=== PATIENT | male | born 1965 | race Caucasian/White ===

== ENCOUNTER 2017-10-07 18:03 | Emergency (ER) ==
[2017-10-07 18:14] VITALS: TEMP 99.1; BMI 35.7
[2017-10-07] MEDS ORDERED: ZESTRIL PO STA (18:19)
--- NOTE | 2017-10-07 18:23 | ED.PDOC ---
General ED Provider: Dr. LAMONT CARBONE Chief Complaint: Hypertension Stated Complaint: hypertension Time Seen by Physician: 18:00 Mode of Arrival: Walk-In Information Source: Patient Exam Limitations: No limitations Primary Care Provider: CHARLES VENTURA Nursing and Triage Documentation Reviewed and Agree: Yes (has been off his bp meds ) Cardiovascular Complaint Exam - Hypertension Complaint/Exam Onset/Duration: today Symptoms Are: Still present Timing: Constant Reported B/P Prior to Arrival: 200 systolic Aggravating: Reports: None Alleviating: Reports: None Associated Signs and Symptoms: Denies: Chest pain, Vision changes, Anxiety, Recent stress, Headache, Numbness, Tingling, Weakness, Dizziness, Short of air, Swelling Related History: Reports: Similar episode Related Surgical History: Reports: None Cardiac Risk Factors: Reports: Hypertension Recent Change in Medications: No A/V Nicking: No Papilledema Present: No JVD Present: No Carotid Bruit Present: No Femoral Pulses Bounding: No Differential Diagnoses: Hypertension Quality Indicator For Non-Traumatic Chest Pain/Syncope: EKG Performed Review of Systems - Review Of Systems Constitutional: Reports: No symptoms Eyes: Reports: No symptoms Ears, Nose, Mouth, Throat: Reports: No symptoms Respiratory: Reports: No symptoms Cardiac: Reports: No symptoms GI: Reports: No symptoms : Reports: No symptoms Musculoskeletal: Reports: No symptoms Skin: Reports: No symptoms Neurological: Reports: No symptoms Endocrine: Reports: No symptoms Hematologic/Lymphatic: Reports: No symptoms All Other Systems: Reviewed and Negative Past Medical History - Past Medical History Previously Healthy: Yes Endocrine: Reports: None Cardiovascular: Reports: Hypertension Respiratory: Reports: None Hematological: Reports: None Gastrointestinal: Reports: GERD Genitourinary: Reports: None Neuro/Psych: Reports: None Musculoskeletal: Reports: None Cancer: Reports: None - Surgical History General Surgical History: Reports: Appendectomy, Orthopedic (PLATE IN RIGHT ANKLE), Back Surgery, Other ( HERNIA SURGERY APPENDECTOMY, PLATE IN RIGHT ) - Family History Family History: Reports: Unknown - Social History Smoking Status: Former smoker Hx Substance Use: No Alcohol Screening: None Physical Exam - Physical Exam Appearance: Well-appearing, No pain distress, Well-nourished Eyes: LA, EOMI, Conjunctiva clear ENT: Ears normal, Nose normal, Oropharynx normal Respiratory: Airway patent, Breath sounds clear, Breath sounds equal, Respirations nonlabored Cardiovascular: RRR, Pulses normal, No rub, No murmur GI/: Soft, Nontender, No masses, Bowel sounds normal, No Organomegaly Musculoskeletal: Normal strength, ROM intact, No edema, No calf tenderness Skin: Warm, Dry, Normal color Neurological: Sensation intact, Motor intact, Reflexes intact, Cranial nerves intact, Alert, Oriented Psychiatric: Affect appropriate, Mood appropriate Re-Evaluation - Re-Evaluation Time of Re-Evaluation: 18:38 Status: Improved (B/P 164/103 ) Pain Level: 0 Appearance: NAD Lungs: Clear Skin: Warm and Dry Neuro: Alert and Oriented X3 CV: RRR Critical Care Note - Critical Care Note Total Time (mins): 0 Course - Course Orders, Labs, Meds: Orders Category Date Time Status EKG-(ED ONLY) Stat CARDIO 10/07/17 18:19 Ordered CBC W/ AUTO DIFF Stat LAB 10/07/17 18:18 Ordered COMPREHENSIVE METABOLIC PANEL Stat LAB 10/07/17 18:18 Ordered Amlodipine Besylate [Norvasc] MEDS 10/07/17 18:24 Stop Req 10 mg PO ONCE STA Lisinopril [Zestril] MEDS 10/07/17 18:19 Discontinued 40 mg PO ONCE STA Medications Discontinued Medications Generic Name Dose Route Start Last Admin Trade Name Freq PRN Reason Stop Dose Admin Amlodipine Besylate 10 mg 10/07/17 18:24 Norvasc PO 10/07/17 18:25 ONCE STA Lisinopril 40 mg 10/07/17 18:19 Zestril PO 10/07/17 18:20 ONCE STA Vital Signs: Temp Pulse Resp BP Pulse Ox 10/07/17 18:03 99.1 F 95 H 20 201/119 H 96 VIRY Risk Score VIRY Risk Score: Risk Score Odds of by 30D 0 0.1 (0.1-0.2) 1 0.3 (0.2-0.3) 2 0.4 (0.3-0.5) 3 0.7 (0.6-0.9) 4 1.2 (1.0-1.5) 5 2.2 (1.9-2.6) 6 3.0 (2.5-3.6) 7 4.8 (3.8-6.1) Departure - Departure Time of Disposition: 19:00 (PT WAS TOLD TO BE COMPLAINT WITH HIS JAGJIT AND FFOLLOW UP WITH PMD ) Disposition: HOME SELF-CARE Discharge Problem: Hypertension Qualifiers: Hypertension type: unspecified Qualified Code(s): I10 - Essential (primary) hypertension Instructions: Hypertension (ED) Condition: Good Pt referred to PMD for follow-up: Yes Additional Instructions: Please call your Family Physician as soon as possible to schedule a follow-up appointment. Allergies/Adverse Reactions: Allergies No Known Allergies Allergy (Verified 10/07/17 18:12) Home Medications: Ambulatory Orders Esomeprazole Magnesium [Nexium] 40 mg PO DAILY 08/14/14 Gabapentin 400 mg PO DAILY 08/14/14 Lisinopril/Hydrochlorothiazide [Zestoretic 20-12.5 mg Tablet] 2 each PO DAILY Disposition Discussed With: Patient
[2017-10-07] MEDS ORDERED: NORVASC PO STA (18:24)
[2017-10-07] MEDS ORDERED: ZESTRIL ONE (18:30)
[2017-10-07 18:32] LABS: BASOPHILS # (AUTO) 0.1 K/uL (0-0.2); BASOPHILS % (AUTO) 0.6 % (0.0-3.0); EOSINOPHILS # (AUTO) 0.2 K/ul (0.0-0.7); EOSINOPHILS % (AUTO) 2.6 % (0.0-7.0); HEMATOCRIT 39.8 % (42.0-52.0); HEMOGLOBIN 14.1 g/dl (14.0-18.0); IMMATURE GRANULOCYTE % (AUTO) 0.2 % (0.0-5.0); LYMPHOCYTES # (AUTO) 2.4 K/uL (0.60-3.4); LYMPHOCYTES % (AUTO) 29.7 (10.0-50.0); MEAN CORPUSCULAR HEMOGLOBIN 29.7 pg (27.0-31.0); MEAN CORPUSCULAR HGB CONC 35.4 (31.8-35.4); MONOCYTES # (AUTO) 0.5 K/uL (0.4-2.0); MONOCYTES % (AUTO) 6.1 (0-10); NEUTROPHILS % (AUTO) 60.8; PLATELET COUNT 196 10^3/uL (140-440); RED BLOOD COUNT 4.74 10^6/ul (4.70-6.10); WHITE BLOOD COUNT 8.15 K/ul (4.2-10.2)
[2017-10-07 18:53] LABS: ALBUMIN 3.5 g/dL (3.4-5.0); ALBUMIN/GLOBULIN RATIO 0.88; ANION GAP 13.7; BILIRUBIN,TOTAL 0.47 mg/dL (0.00-1.20); BUN/CREATININE RATIO 10.1; CALCIUM 9.5 mg/dL (8.2-10.2); CREATININE 0.99 mg/dL (0.60-1.10); POTASSIUM 3.7 mmol/L (3.5-5.1); TOTAL PROTEIN 7.5 g/dL (6.4-8.2)
[2017-10-07 19:08] VITALS: BP 146/88
== END 2017-10-07 19:32 | disposition home or self-care (01) ==
LOC: ED 18:03
DX: I10 Essential (primary) hypertension (principal); Z91.14 Patient's other noncompliance with medication regimen
CPT/HCPCS: 36415; 80053; 85025; 93005; 93010; 99283

== ENCOUNTER 2019-05-02 11:46 | Emergency (ER) ==
[2019-05-02 11:58] VITALS: BP 171/102; TEMP 97.1; BMI 36.3
--- NOTE | 2019-05-02 12:08 | ED.PDOC ---
General ED Provider: Dr. JAILYN CUEVA MD Chief Complaint: Abdominal Pain Stated Complaint: LLQ abdominal pain radiating in to scrotum Time Seen by Physician: 12:07 Mode of Arrival: Walk-In Information Source: Patient Exam Limitations: No limitations Primary Care Provider: CHARLES VENTURA Nursing and Triage Documentation Reviewed and Agree: Yes Does patient meet sepsis criteria?: No If yes, has appropriate treatment been initiated?: Yes System Inflammatory Response Syndrome: Not Applicable Sepsis Protocol: For patient's 13 years and over: Temp is 96.8 and below OR 101 and greater Pulse >90 BPM Resp >20/minute Acutely Altered Mental Status Are patient's symptoms suggestive of a new infection, such as: -Pneumonia -Skin, Soft Tissue -Endocarditis -UTI -Bone, Joint Infection -Implantable Device -Acute Abdominal Infection -Wound Infection -Meningitis -Blood Stream Catheter Infection -Unknown Review of Systems - Review Of Systems Constitutional: Reports: No symptoms Eyes: Reports: No symptoms Ears, Nose, Mouth, Throat: Reports: No symptoms Respiratory: Reports: No symptoms Cardiac: Reports: No symptoms GI: Reports: Abdominal pain, Nausea : Reports: No symptoms Musculoskeletal: Reports: No symptoms Skin: Reports: No symptoms Neurological: Reports: No symptoms Endocrine: Reports: No symptoms Hematologic/Lymphatic: Reports: No symptoms All Other Systems: Reviewed and Negative Past Medical History - Past Medical History Previously Healthy: Yes Endocrine: Reports: None Cardiovascular: Reports: Hypertension Respiratory: Reports: None Hematological: Reports: None Gastrointestinal: Reports: GERD Genitourinary: Reports: None Neuro/Psych: Reports: None Musculoskeletal: Reports: None Cancer: Reports: None - Surgical History General Surgical History: Reports: Appendectomy, Orthopedic (PLATE IN RIGHT ANKLE), Back Surgery, Other ( HERNIA SURGERY APPENDECTOMY, PLATE IN RIGHT ) - Family History Family History: Reports: Unknown - Social History Smoking Status: Chews tobacco Hx Substance Use: No Alcohol Screening: None - Immunizations Tetanus Shot up to Date: (not sure) Physical Exam - Physical Exam Appearance: Obese Pain Distress: Mild Eyes: LA, EOMI, Conjunctiva clear ENT: Ears normal, Nose normal, Oropharynx normal Respiratory: Airway patent, Breath sounds clear, Breath sounds equal, Respirations nonlabored Cardiovascular: RRR, Pulses normal, No rub, No murmur GI/: Soft, Bowel sounds normal, Tender (LLQ) Musculoskeletal: Normal strength, ROM intact, No edema, No calf tenderness Skin: Warm, Dry, Normal color Neurological: Sensation intact, Motor intact, Reflexes intact, Cranial nerves intact, Alert, Oriented Psychiatric: Affect appropriate, Mood appropriate Critical Care Note - Critical Care Note Total Time (mins): 0 Course - Course Orders, Labs, Meds: Lab Review 05/02/19 12:05 Urine Color Yellow Urine Clarity Clear Urine pH 6.5 Ur Specific Alsen 1.015 Urine Protein Negative Urine Glucose (UA) Trace Urine Ketones Negative Urine Blood 2+ Urine Nitrite Positive Urine Bilirubin Negative Urine Urobilinogen 0.2 Ur Leukocyte Esterase Trace Urine Microscopic RBC 5-10 Urine Microscopic WBC 2-5 Ur Squamous Epith Cells 2-5 Urine Bacteria 1+ Orders Category Date Time Status UA [URINALYSIS C & S IF INDICATED] Stat LAB 05/02/19 12:05 Completed URINE CULTURE Stat LAB 05/02/19 12:05 Received Ketorolac Tromethamine [Toradol] MEDS 05/02/19 12:07 Discontinued 60 mg IM ONCE STA CT ABD/PEL WO RENAL STONE PROT Stat RADS 05/02/19 12:07 Taken Medications Discontinued Medications Generic Name Dose Route Start Last Admin Trade Name Freq PRN Reason Stop Dose Admin Ketorolac Tromethamine 60 mg 05/02/19 12:07 Toradol IM 05/02/19 12:08 ONCE STA Vital Signs: Temp Pulse Resp BP Pulse Ox 05/02/19 11:47 97.1 F L 70 18 171/102 H 96 Departure - Departure Time of Disposition: 12:53 Disposition: HOME SELF-CARE Discharge Problem: Pain in jaw not originating in temporomandibular joint Instructions: Temporomandibular Disorder (ED) Condition: Good Pt referred to PMD for follow-up: Yes IPMP verified?: No Allergies/Adverse Reactions: Allergies No Known Allergies Allergy (Verified 05/02/19 12:00) Home Medications: Ambulatory Orders Esomeprazole Magnesium [Nexium] 40 mg PO DAILY 08/14/14 Gabapentin 400 mg PO DAILY 08/14/14 Losartan Potassium [Cozaar] 25 mg PO DAILY 05/02/19 Transfer Form Completed: No Disposition Discussed With: Patient
[2019-05-02] MEDS: TORADOL IM STA (12:49)
--- NOTE | 2019-05-02 13:11 | CT ---
EXAM: Noncontrast CT of the abdomen and pelvis. HISTORY: Left lower quadrant pain. Prior history of stones. COMPARISON: 08/09/2017. TECHNIQUE: Contiguous axial images at 3 mm intervals were obtained from lung bases through the pelvi s. No contrast was given. Coronal reformats were reviewed. FINDINGS: The study is limited without contrast. CHEST: LUNG BASES: The lung bases show no lobar consolidation or effusion. HEART: The heart size is within normal limits.Coronary artery calcifications are noted. ABDOMEN: Evaluation of the soft tissue organs is limited without contrast. LIVER: Noncontrast images of the liver show no solid mass lesion or intrahepatic ductal dilatation. BILIARY: The gallbladder is normally distended. No gallstones are noted. No pericholecystic fluid or inflammation. The common bile duct is normal. SPLEEN: The spleen is unremarkable. PANCREAS: The pancreas shows no mass lesion or peripancreatic inflammation. ADRENAL GLANDS: The adrenal glands are normal. RENAL: There is mild to moderate left hydronephrosis and hydroureter secondary to the proximal left ureteral stone measuring up to 5 mm. This is at the ureteral pelvic junction. There are nonobstruct ing stones on the right measuring up to 6 mm. No solid mass lesions are identified. AORTA: calcifications are seen. No aneurysm is identified. RETROPERITONEUM: There is no retroperitoneal or mesenteric adenopathy. BOWEL: The bowel is unopacified. There is no obstruction or inflammatory change. There is no free fluid or free air. No significant inflammatory changes are seen. The appendix is absent. There are prior postoperative changes with midline hernia repair. There is some scattered diverticula see n without evidence of acute diverticulitis. PELVIS: BLADDER: The bladder is well distended and appears normal. GENITOURINARY STRUCTURES: The prostate is unremarkable. OSSEOUS STRUCTURES: Normal for age. IMPRESSION 1. Left hydronephrosis and hydroureter secondary to a proximal left ureteral stone measuring 5 mm. The stone is at the ureteral pelvic junction. 2. Right nephrolithiasis without obstruction. 3. Minimal diverticulosis without evidence of acute diverticulitis.
== END 2019-05-02 13:32 | disposition home or self-care (01) ==
LOC: ED 11:46
DX: N20.0 Calculus of kidney (principal); I10 Essential (primary) hypertension; Z72.0 Tobacco use
CPT/HCPCS: 81001; 87086; 96372; 99283